=== PATIENT | female | born 1985 | race Hispanic/Latino ===

== ENCOUNTER 2022-07-16 17:51 | Emergency (ER) | payer SELFPAY ==
--- OUTSIDE RECORDS SUMMARY | 2022-07-16 17:54 | XMS REPORT | Continuity of Care Document ---
:[address] [facility] Address [address] [place] [address] Care Team Providers Name Role Phone PHILIP HUTCHISON Attending Clinician Unavailable Problems This patient has no known problems. Allergies, Adverse Reactions, Alerts This patient has no known allergies or adverse reactions. Medications This patient has no known medications. Procedures This patient has no known procedures. Encounters Start End Encounter Admission Attending Care Care Encounter Source Date/Time Date/Time Type Type Clinicians Facility Department ID 2022-07-12 2022-07-12 Emergency KIANNA [facility] [id number] [place] 00:00:00 00:00:00 PHILIP [address] Results This patient has no known results.
[2022-07-16] MEDS ORDERED: NA CHLORIDE 0.9% 1,000 ML ONE (19:24)
[2022-07-16 19:43] LABS: Urine Blood Negative (Negative); Urine Glucose Negative (Negative); Urine Protein Negative (Negative); Urine Specific Gravity 1.015 (1.005-1.030)
--- NOTE | 2022-07-16 19:49 | RAD REPORT ---
EXAM DESCRIPTION: RAD - Chest Single View - 07/16/2022 7:21 pm CLINICAL HISTORY: SOB COMPARISON: None TECHNIQUE: AP portable chest image was obtained 07/16/2022 7:21 pm . FINDINGS: Lungs are clear. Heart and vasculature are normal. No measurable pleural effusion and no p neumothorax. No acute bony abnormality seen. No acute aortic findings suspected. IMPRESSION: No acute cardiopulmonary process.
[2022-07-16 19:56] LABS: Hematocrit 36.8 % (36.0-45.0); Lymphocytes % 10.9 % (15.3-44.8); MCV 95.5 fL (80-100); MPV 9.5 fL (7.6-11.3); RBC Red Blood Cell Count 3.85 M/uL (3.86-4.86)
[2022-07-16 20:01] LABS: Protime INR 0.96
[2022-07-16 20:01] LABS: Urine Specific Gravity/Preg 1.015 (1.005-1.030)
[2022-07-16] MEDS ORDERED: LORAZEPAM 1 MG TABLET ONE (20:01)
[2022-07-16 20:02] LABS: Barbiturates NEGATIVE (NEGATIVE); Benzodiazepines NEGATIVE (NEGATIVE); Cocaine NEGATIVE (NEGATIVE); METHAMPHETAM NEGATIVE (NEGATIVE); Methadone NEGATIVE (NEGATIVE); Opiates NEGATIVE (NEGATIVE); Phencyclidine NEGATIVE (NEGATIVE); THC Cannibis NEGATIVE (NEGATIVE)
[2022-07-16 20:08] LABS: Urine Bacteria <20 /HPF (<20); Urine RBC <5 /HPF (None Seen)
[2022-07-16 20:16] LABS: Albumin 4.3 g/dL (3.4-5.0); Bilirubin Direct 0.2 mg/dL (0-0.2); Bilirubin Total 0.8 mg/dL (0.2-1.0); Magnesium 2.1 mg/dL (1.8-2.4); Potassium 3.6 mmol/L (3.5-5.1); Protein, Total 7.7 g/dL (6.4-8.2); Troponin High Sensitivity 3.3 pg/mL (<58.9)
--- NOTE | 2022-07-16 21:48 | RAD REPORT ---
EXAM DESCRIPTION: CT - Abdomen Pelvis W Contrast - 07/16/2022 9:38 pm CLINICAL HISTORY: left upper abdomen pain COMPARISON: No comparisons TECHNIQUE: Biphasic, helical CT imaging of the abdomen and pelvis was performed following 100 ml non -ionic IV contrast. No oral contrast was administered. All CT scans are performed using dose optimization technique as appropriate and may include automated exposure control or mA/KV adjustment according to patient size. FINDINGS: No suspicious findings in the lung bases. The liver, spleen, and pancreas show no suspicious findings. Gallbladder tightly contracted. No bilia ry tree dilatation. Symmetric renal function is seen with no hydronephrosis or suspicious renal mass. No pyelonephritis o r acute parenchymal process. No bladder abnormalities. No adrenal abnormalities. No uterine or ovaria n abnormality. Small ovarian cysts are present. No stomach or small bowel abnormality seen. Patient indicated no surgical history though there is niels dence for partial resection of the right-side colon. Colon-small bowel anastomosis shows no unexpecte d finding. There is moderate stool volume in the colon. No free air, free fluid or inflammatory stra nding. No hernia, mass or bulky lymphadenopathy. No suspicious bony findings. IMPRESSION: Contrast enhanced CT abdomen and pelvis showing no acute or emergent finding.
[2022-07-16 21:59] LABS: SARS-CoV-2 Antigen Rapid Res Negative (Negative)
--- NOTE | 2022-07-16 22:45 | EDPHYS ---
Physician Documentation [facility] Name: Bhumi Laureano Age: 37 yrs Sex: Female : 1985 Arrival Date: 07/16/2022 Time: 18:03 Bed 19 Private MD: ED Physician Matilda Ac HPI: 07/16 18:45 This 37 yrs old Female presents to ER via Ambulatory with complaints of cp Feeling Unwell. 18:45 feeling unwell. 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 - Social history:: Smoking status: Patient denies any tobacco usage or history of. ROS: 18:50 Eyes: Negative for injury, pain, redness, and discharge. cp 18:50 Constitutional: Negative for body aches, chills, fever, poor PO intake. 18:50 Cardiovascular: Positive for chest pain, Negative for edema, palpitations. 18:50 Respiratory: Positive for shortness of breath, on exertion. Negative for cough, wheezing. 18:50 Abdomen/GI: Positive for abdominal pain, of the left upper quadrant. Exam: 18:53 Head/Face: Normocephalic, atraumatic. cp 18:53 Constitutional: The patient appears in no acute distress, alert, awake, non-diaphoretic, non-toxic, well developed, well nourished, anxious. 18:53 Eyes: Periorbital structures: appear normal, Pupils: equal, round, and reactive to cp light and accomodation, Extraocular movements: intact throughout, Conjunctiva: normal, no exudate, no injection, Sclera: no appreciated abnormality, Lids and lashes: appear normal, bilaterally. 18:53 ENT: External ear(s): are unremarkable, Nose: is normal, Mouth: Lips: moist, Oral mucosa: pink and intact, moist, Posterior pharynx: Airway: no evidence of obstruction, patent. 18:53 Neck: ROM/movement: is normal, is supple, without pain, no range of motions limitations, no nuchal rigidity. 18:53 Chest/axilla: Inspection: normal, Palpation: is normal, no crepitus, no tenderness. 18:53 Cardiovascular: Rate: normal, Rhythm: regular, Edema: is not appreciated, JVD: is not appreciated. 18:53 Respiratory: the patient does not display signs of respiratory distress, Respirations: normal, no use of accessory muscles, no retractions, labored breathing, is not present, Breath sounds: are clear throughout, no decreased breath sounds, no stridor, no wheezing. 18:53 Abdomen/GI: Inspection: abdomen appears normal, Bowel sounds: active, all quadrants, Palpation: soft, in all quadrants, mild abdominal tenderness, in the left upper quadrant, rebound tenderness, is not appreciated, involuntary guarding, is not appreciated. 18:53 Back: pain, is absent, ROM is normal. 18:53 Skin: cellulitis, is not appreciated, no rash present. 18:53 Neuro: Orientation: to person, place \T\ time. Mentation: is normal, Cerebellar function: is grossly normal, Motor: moves all fours, strength is normal, Sensation: is normal. 19:35 ECG was reviewed by the Attending Physician. cp Vital Signs: 18:18 BP 124 / ???; Pulse 87; Resp 30; Temp 98.0; Pulse Ox 100% ; Weight 62.14 kg; Height 5 kb3 ft. 1 in. (154.94 cm); Pain 0/10; 19:00 BP 117 / 65; Pulse 81; Resp 16; Pulse Ox 100% on R/A; ll3 20:00 BP 121 / 72; Pulse 63; Resp 18; Pulse Ox 99% on R/A; ll3 21:00 BP 104 / 52; Pulse 64; Resp 18; Pulse Ox 98% on R/A; ll3 22:37 BP 103 / 53; Pulse 90; Resp 19; Pulse Ox 99% on R/A; ll3 23:12 BP 111 / 80; Pulse 80; Resp 17; Pulse Ox 98% on R/A; ll3 18:18 Body Mass Index 25.89 (62.14 kg, 154.94 cm) kb3 MDM: 18:05 Patient medically screened. cp 22:44 Data reviewed: vital signs, nurses notes. Counseling: I had a detailed discussion with [facility] the patient and/or guardian regarding: the historical points, exam findings, and any diagnostic results supporting the discharge/admit diagnosis, lab results, radiology results, the need for outpatient follow up, to return to the emergency department if symptoms worsen or persist or if there are any questions or concerns that arise at home. 23:33 ED course: This is a 37-year-old female with no chronic medical conditions presents [facility] emerged department with complaints of near syncope beginning this past Monday. Symptoms began while she was sitting in a car and began to feel tingling to her feet. Patient went to see her PCP who noted that her hemoglobin was slightly low and that her blood pressure was low as well. Patient states that just prior to arrival she developed tingling to both of her legs and felt as though she was nearly about to pass out. I discussed the labs and imaging studies with the patient. Also discussed the need to follow with cardiology for further evaluation. [place] syncope rules does not recommend inpatient at this time. But patient was given strict return precautions. Patient understood agrees plan of care. 07/16 18:38 Order name: Basic Metabolic Panel; Complete Time: 20:25 cp 08/ 20:25 Interpretation: Normal except: GLUC 107. cp 07/16 18:38 Order name: CBC with Diff; Complete Time: 20:25 cp /20 20:25 Interpretation: Normal except: RBC 3.85; RDW 15.5; YUE% 83.3; LYM% 10.9. cp 07/16 18:38 Order name: D-Dimer; Complete Time: 20:25 cp /20 20:26 Interpretation: D-DIMER 374; Reviewed. cp 07/16 18:38 Order name: LFT's; Complete Time: 20:25 cp /20 20:26 Interpretation: Reviewed. cp 07/16 18:38 Order name: Magnesium; Complete Time: 20:25 cp 07/16 18:38 Order name: NT PRO-BNP; Complete Time: 20:25 cp / 18:38 Order name: PT-INR; Complete Time: 20:25 cp 07/16 18:38 Order name: Troponin HS; Complete Time: 20:25 cp /20 20:26 Interpretation: Troponin HS 3.3; Reviewed. cp 07/16 18:38 Order name: XRAY Chest (1 view); Complete Time: 20:25 cp 07/16 20:26 Interpretation: Report review. cp 07/16 18:38 Order name: Urine Drug Screen; Complete Time: 20:25 cp 07/16 20:26 Interpretation: Reviewed. cp 07/16 18:38 Order name: Urine Microscopic Only; Complete Time: 20:25 cp 07/16 20:26 Interpretation: Reviewed. cp 07/16 19:43 Order name: Urine Dipstick-Ancillary; Complete Time: 20:25 EDMS 07/16 19:46 Order name: Urine --Ancillary (enter results); Complete Time: 20:25 ds4 07/16 21:15 Order name: SARS RAPID; Complete Time: 22:03 cp 07/16 18:38 Order name: EKG; Complete Time: 18:39 cp 07/16 18:38 Order name: Cardiac monitoring; Complete Time: 19:44 cp 07/16 18:38 Order name: EKG - Nurse/Tech; Complete Time: 19:45 cp 07/16 18:38 Order name: IV Saline Lock; Complete Time: 19:45 cp 07/16 18:38 Order name: Labs collected and sent; Complete Time: 19:45 cp 07/16 18:38 Order name: O2 Per Protocol; Complete Time: 19:45 cp 07/16 18:38 Order name: O2 Sat Monitoring; Complete Time: 19:45 cp 07/16 18:38 Order name: Urine Dipstick-Ancillary (obtain specimen); Complete Time: 19:44 cp 07/16 18:38 Order name: Urine Test (obtain specimen); Complete Time: 19:44 cp 07/16 21:15 Order name: CT Abd/Pelvis - IV Contrast Only; Complete Time: 21:50 cp EC:35 Rate is 67 beats/min. Rhythm is regular. IL interval is normal. QRS interval is normal. cp QT interval is normal. T waves are Inverted in lead aVR. Interpreted by me. Reviewed by me. Administered Medications: 19:50 Not Given (Physician Discretion): Ativan (LORazepam) 0.5 mg IVP once; if test cp negative 20:04 Drug: NS 0.9% 1000 ml Route: IV; Rate: 1 bolus; Site: right antecubital; jb4 23:14 Follow up: Response: No adverse reaction; IV Status: Completed infusion; IV Intake: ll3 1000ml 20:04 Drug: Ativan (LORazepam) 1 mg Route: PO; jb4 22:17 Follow up: Response: No adverse reaction ll3 Disposition: 07/17 08:26 STAFF ATTESTATION STATEMENT: I was immediately available onsite in the emergency sd2 department for consultation in the care of this patient. I did not see or examine this patient. Matilda Ac MD. Disposition Summary: 07/16/22 22:45 Discharge Ordered Location: Home jmm Condition: Stable jmm Diagnosis - Syncope Near jmm Followup: jmm - With: Andrea Kerr MD - When: 1 - 2 days - Reason: Recheck today's complaints, Continuance of care, Re-evaluation by your physician Discharge Instructions: - Discharge Summary Sheet jmm - Near-Syncope jmm Forms: - Medication Reconciliation Form jmm - Thank You Letter jmm - Antibiotic Education jmm - Prescription Opioid Use jmm Signatures: Dispatcher [employer] EDMS Beck Beltrán PA PA jmm Page, Corey, PA PA cp Bryson, James, RN RN jb4 Matilda Ac MD MD sd2 Virginia Gibson, RN RN kb3 Santana Amaral RN ll3 Corrections: (The following items were deleted from the chart) 07/16 20:25 20:25 Normal except: RBC 3.85. cp cp 21:19 20:30 Constitutional: Negative for body aches, chills, fever, poor PO intake, cp cp 21:19 20:30 Eyes: Negative for injury, pain, redness, and discharge, cp cp 21:19 20:30 Cardiovascular: Positive for chest pain, Negative for edema, palpitations, cp cp 21:19 20:30 Respiratory: Positive for shortness of breath, on exertion. Negative for cough, cp wheezing, cp 21:19 20:30 Abdomen/GI: Positive for abdominal pain, of the left upper quadrant, cp cp 21:20 20:27 feeling unwell. cp cp 21:20 20:27 This 37 yrs old Female presents to ER via Ambulatory with complaints of cp Feeling Unwell. cp 21:23 20:35 Constitutional: The patient appears in no acute distress, alert, awake, cp non-diaphoretic, non-toxic, well developed, well nourished, anxious, cp 21:23 20:35 Head/Face: Normocephalic, atraumatic. cp cp
--- NOTE | 2022-07-16 22:45 | ER ---
Nurse's Notes [facility] Name: Bhumi Laureano Age: 37 yrs Sex: Female : 1985 Arrival Date: 07/16/2022 Time: 18:03 Bed 19 Private MD: Diagnosis: Syncope Near Presentation: 07/16 18:18 Chief complaint: Patient states: Pt presents crying, trembling, hyperventilating, kb3 reports that her doctor told her that her blood count was "low, low." Pt states she has felt unwell for a week, PCP did lab work and instructed her to take vitamins. Symptoms include episodic tingling in fingers with SOB and sweating, shaking, fatigue, insomnia. Coronavirus screen: Vaccine status: Patient reports receiving the 2nd dose of the covid vaccine. At this time, the client does not indicate any symptoms associated with coronavirus-19. Ebola Screen: Patient negative for fever greater than or equal to 101.5 degrees Fahrenheit, and additional compatible Ebola Virus Disease symptoms Patient denies exposure to infectious person. Patient denies travel to an Ebola-affected area in the 21 days before illness onset. No symptoms or risks identified at this time. Initial Sepsis Screen: Does the patient meet any 2 criteria? RR > 20 per min. No. Patient's initial sepsis screen is negative. Does the patient have a suspected source of infection? No. Patient's initial sepsis screen is negative. Risk Assessment: Do you want to hurt yourself or someone else? Patient reports no desire to harm self or others. Onset of symptoms was July 16, 2022 at 12:00. 18:18 Method Of Arrival: Ambulatory kb3 18:18 Acuity: NERY 3 kb3 Triage Assessment: 18:22 General: Appears distressed, slender, well groomed, Behavior is anxious, crying, kb3 restless. Pain: Denies pain. 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 - Social history:: Smoking status: Patient denies any tobacco usage or history of. Screenin:09 Abuse screen: Denies threats or abuse. Nutritional screening: No deficits noted. ll3 Tuberculosis screening: No symptoms or risk factors identified. Fall Risk None identified. Assessment: 19:15 General: Appears uncomfortable, Behavior is cooperative, anxious. Pain: Complains of ll3 pain in left upper quadrant. Neuro: Level of Consciousness is awake, alert, obeys commands, Oriented to person, place, time, situation, Reports dizziness, weakness. Cardiovascular: Patient's skin is warm and dry. Respiratory: Respiratory effort is even, unlabored, Respiratory pattern is regular, symmetrical. Derm: Skin is pink, warm \\T\\ dry. 20:30 Reassessment: No changes from previously documented assessment. Patient and/or family ll3 updated on plan of care and expected duration. Pain level reassessed. Patient is alert, oriented x 3, equal unlabored respirations, skin warm/dry/pink. 21:29 Reassessment: Patient and/or family updated on plan of care and expected duration. Pain ll3 level reassessed. Patient is alert, oriented x 3, equal unlabored respirations, skin warm/dry/pink. Patient states feeling better. 22:37 Reassessment: No changes from previously documented assessment. Patient and/or family ll3 updated on plan of care and expected duration. Pain level reassessed. Patient is alert, oriented x 3, equal unlabored respirations, skin warm/dry/pink. 23:12 Reassessment: No changes from previously documented assessment. Patient and/or family ll3 updated on plan of care and expected duration. Pain level reassessed. Patient is alert, oriented x 3, equal unlabored respirations, skin warm/dry/pink. Vital Signs: 18:18 BP 124 / ???; Pulse 87; Resp 30; Temp 98.0; Pulse Ox 100% ; Weight 62.14 kg; Height 5 kb3 ft. 1 in. (154.94 cm); Pain 0/10; 19:00 BP 117 / 65; Pulse 81; Resp 16; Pulse Ox 100% on R/A; ll3 20:00 BP 121 / 72; Pulse 63; Resp 18; Pulse Ox 99% on R/A; ll3 21:00 BP 104 / 52; Pulse 64; Resp 18; Pulse Ox 98% on R/A; ll3 22:37 BP 103 / 53; Pulse 90; Resp 19; Pulse Ox 99% on R/A; ll3 23:12 BP 111 / 80; Pulse 80; Resp 17; Pulse Ox 98% on R/A; ll3 18:18 Body Mass Index 25.89 (62.14 kg, 154.94 cm) kb3 ED Course: 18:03 Patient arrived in ED. bm7 18:04 Omar Peters PA is PHCP. cp 18:04 Matilda Ac MD is Attending Physician. cp 18:21 Triage completed. kb3 18:22 Arm band placed on Patient placed in an exam room. kb3 19:23 XRAY Chest (1 view) In Process Unspecified. EDMS 19:46 Urine Microscopic Only Sent. tw5 19:46 Urine Drug Screen Sent. tw5 20:00 No provider procedures requiring assistance completed. Inserted saline lock: 22 gauge ll3 in right antecubital area, using aseptic technique. Blood collected. 20:54 PHCP role handed off by Omar Peters PA jm 20:54 Beck Beltrán PA is PHCP. jmm 21:09 Patient has correct armband on for positive identification. Placed in gown. Bed in low ll3 position. Call light in reach. Side rails up X 1. Client placed on continuous cardiac and pulse oximetry monitoring. NIBP monitoring applied. 21:26 Santana Amaral, RN is Primary Nurse. ll3 21:40 CT Abd/Pelvis - IV Contrast Only In Process Unspecified. EDMS 22:44 Andrea Kerr MD is Referral Physician. jmm 23:13 IV discontinued, intact, bleeding controlled, No redness/swelling at site. Pressure ll3 dressing applied. Administered Medications: 19:50 Not Given (Physician Discretion): Ativan (LORazepam) 0.5 mg IVP once; if test cp negative 20:04 Drug: NS 0.9% 1000 ml Route: IV; Rate: 1 bolus; Site: right antecubital; jb4 23:14 Follow up: Response: No adverse reaction; IV Status: Completed infusion; IV Intake: ll3 1000ml 20:04 Drug: Ativan (LORazepam) 1 mg Route: PO; jb4 22:17 Follow up: Response: No adverse reaction ll3 Medication: 23:13 VIS not applicable for this client. ll3 Intake: 23:14 IV: 1000ml; Total: 1000ml. ll3 Outcome: 22:45 Discharge ordered by . laura 23:13 Discharged to home ambulatory, with family. ll3 23:13 Condition: stable 23:13 Discharge instructions given to patient, significant other, Instructed on discharge instructions, follow up and referral plans. Demonstrated understanding of instructions, follow-up care. 23:15 Patient left the ED. ll3 Signatures: Dispatcher [employer] EDMS Beck Beltrán PA PA jmm Page, Corey, PA PA cp Bryson, James, RN RN jb4 Brynn Hammer, RN RN bm7 Gabby Hernandez tw5 Santana Amaral, RN RN ll3 Virginia Gibson, RN RN kb3 Corrections: (The following items were deleted from the chart) 18:22 18:18 Chief complaint: Patient states: Pt presents crying, trembling, hyperventilating, kb3 reports that her doctor told her that her blood count was "low, low." Pt states she has felt unwell for a week, PCP did lab work and instructed her to take vitamins. PT received lab results from [facility] today and Hg is 10.9. kb3
[2022-07-17 02:27] VITALS: TEMP 98
[2022-07-17 02:39] VITALS: BP 111/80
[2022-07-17 02:40] VITALS: O2SAT 98
--- NOTE | 2022-07-18 08:11 | EKG ---
Test Date: 2022-07-16 Test Time: 19:28:40 Admissions Consultant: SANAZ MEASUREMENT RESULTS: Intervals: Rate: 67 CO: 130 QRSD: 74 QT: 388 QTc: 409 [place]: P: 34 CO: 130 QRS: 53 T: 44 INTERPRETIVE STATEMENTS: Normal sinus rhythm Normal ECG No previous ECG available for comparison Electronically Signed On 07-18-22 08:06:44 CDT by Mainor Beck
== END 2022-07-16 23:15 | disposition home or self-care (01) ==
LOC: ER 17:51
DX: R55 Syncope and collapse (principal); Z20.822 Contact with and (suspected) exposure to COVID-19
CPT/HCPCS: 36415; 71045; 74177; 80048; 80076; 80307; 81003; 81015; 81025; 83735; 83880; 84484; 85025; 85379; 85610; 87811; 93005; 96360; 96361; 99284; J7030; Q9967